=== PATIENT | female | born 1950 | race Hispanic/Latino ===

== ENCOUNTER 2017-11-08 14:09 | Emergency (ER) | payer MEDICARE ==
[~2017-11-08] VITALS: Ht 167.6 cm; Wt 72.6 kg
[~2017-11-08 14:09] MED LIST: CALCIUM PO; FOLIC ACID PO; HUMIRA IV; HUMIRA20 MG/0.4; METHOTREXATE2.5 MG PO; MULTIVITAMIN PO; VITAMIN D PO
[2017-11-08] MEDS ORDERED: HYDROCODONE/APAP 7.5MG-325MG 1 EA TAB PO ONE (15:00)
--- NOTE | 2017-11-08 15:55 | Diagnostic Imaging Report ---
SHOULDER RIGHT COMPLETE - 2 views HISTORY: Pain COMPARISON: None available. FINDINGS: See below. IMPRESSION: Intra-articular fracture of the inferior aspect of the right glenoid. No evidence of acute fracture or dislocation of the right humeral head. Signed by: Dr. Fredy Terrazas MD on 11/08/2017 3:52 PM
--- NOTE | 2017-11-08 15:57 | Diagnostic Imaging Report ---
Cervical Spine, 6 views HISTORY: Pain COMPARISON: None. FINDINGS: Limited sensitivity for detection of subtle fractures and ligamentous abnormalities. On the lateral view, the cervical spine is visualized from the skull base to C7. The alignment is normal. Vertebral body heights are maintained. No acute displaced fracture involving the visualized cervical spine. Mild degenerative changes, most prominent at C4-C6. IMPRESSION: No acute radiographic abnormality. Signed by: Dr. Fredy Terrazas MD on 11/08/2017 3:53 PM
== END 2017-11-08 17:09 | disposition home or self-care (01) ==
LOC: ER 14:09
DX: S42.141A Displaced fracture of glenoid cavity of scapula, right shoulder, initial encounter for closed fracture (principal); W01.198A Fall on same level from slipping, tripping and stumbling with subsequent striking against other object, initial encounter; Y92.019 Unspecified place in single-family (private) house as the place of occurrence of the external cause
CPT/HCPCS: 72050; 99284

== ENCOUNTER → 2017-11-19 | Outpatient (CLI) | payer MEDICARE ==
--- NOTE | 2017-11-19 14:42 | Diagnostic Imaging Report ---
Exam: Right shoulderCT without contrast. History: Shoulder pain. Fall. Decreased range of motion. Fracture. Comparison:Radiographs 11/08/2017 Technique: Utilizing a 64-slice multidetector CT, axial imaging was performed through the right shoulder without IV contrast. Multiplanar reformation was performed. Findings: There is a comminuted displaced intra-articular fracture involving the right mid/inferior glenoid. Several bone fragments are seen. The largest bone fragment is displaced centrally by approximately 3 mm and inferiorly by approximately 6 mm. The findings are best seen on coronal reformatted image 69 through 90. There is associated soft tissue swelling and a glenohumeral joint effusion. There are mild degenerative changes at the acromioclavicular joint. There is undersurface spurring and narrowing of the supraspinatus tendon outlet. Ill-defined calcification is seen along the anterior superior humeral head in the rotator cuff musculature which is likely due to partial tearing of the rotator cuff/capsule with soft tissue calcification. This is best seen on series 4 image 24 through 27. The visualized portion of the lung is unremarkable. No radiopaque foreign body is seen. Impression: Comminuted displaced intra-articular fracture involving the mid/inferior glenoid bone. There is associated soft tissue swelling and a glenohumeral joint effusion. Ill-defined calcification along the anterior superior humeral head and the rotator cuff musculature likely due to to a partial tear of the rotator cuff/capsule. Signed by: Dr. Jaciel Diaz M.D. on 11/19/2017 2:39 PM
== END ==
LOC: CT 13:32
PROVIDERS: ATTEND Specialist
DX: S42.141A Displaced fracture of glenoid cavity of scapula, right shoulder, initial encounter for closed fracture (principal)

== ENCOUNTER → 2018-06-10 | Day surgery (SDC) | payer MEDICARE ==
[2018-06-04 10:12] LABS: BASOPHILS % 0.6 % (0.0-1.0); EOSINOPHILS # (AUTO) 0.2 (0.0-0.4); EOSINOPHILS % 3.2 % (0.0-6.0); HEMATOCRIT 39.6 % (34.2-44.1); HEMOGLOBIN 13.6 g/dL (12.0-16.0); LYMPHOCYTES # (AUTO) 1.6 (1.0-3.2); LYMPHOCYTES % 31.3 % (18.0-39.1); MEAN CORPUSCULAR HEMOGLOBIN 31.1 pg (28-32); MEAN CORPUSCULAR HGB CONC 34.3 g/dL (31-35); MEAN CORPUSCULAR VOLUME 90.4 fL (81-99); MONOCYTES # (AUTO) 0.4 (0.2-0.8); MONOCYTES % 6.9 % (4.4-11.3); NEUTROPHILS % 57.4 % (38.7-80.0); PLATELET COUNT 186 x10e3/uL (140-360); RED BLOOD COUNT 4.38 x10e6/uL (3.6-5.1); RED CELL DISTRIBUTION WIDTH 12.4 % (11.7-14.4)
[2018-06-04 10:28] LABS: ANION GAP 10.8 mmol/L (8-16); BLOOD UREA NITROGEN 17 mg/dL (7-26); BUN/CREATININE RATIO 23 (6-25); CALCIUM 9.6 mg/dL (8.4-10.2); CARBON DIOXIDE 28 mmol/L (22-29); CHLORIDE 103 mmol/L (98-107); CREATININE, SERUM 0.73 mg/dL (0.57-1.11); EST GLOMERULAR FILTRATION RATE > 60 ML/MIN (60-); GLUCOSE 113 mg/dL (74-118); POTASSIUM 3.8 mmol/L (3.5-5.1); SODIUM 138 mmol/L (136-145)
--- NOTE | 2018-06-04 10:59 | Diagnostic Imaging Report ---
PROCEDURE: X-RAY CHEST, TWO VIEWS COMPARISON: None. INDICATIONS: PREOPERATIVE CHEST XRAY FOR LEFT PARTIAL MASTECTOMY FINDINGS: LUNGS: No consolidations or edema. PLEURA: No effusions or pneumothorax. HEART \T\ MEDIASTINUM: The heart is within normal size-limits. Calcification within the aorta. BONES \T\ SOFT TISSUES: No acute findings. Mild degenerative changes of the spine. CONCLUSION: No acute thoracic abnormality. Asa Montesinos D.O. Dictated by: Asa Montesinos D.O. on 06/04/2018 at 11:04 Electronically approved by: Asa Montesinos D.O. on 06/04/2018 at 11:04
[~2018-06-10] MED LIST changes: +FENTANYL CITRATE/PF 100MCG/2 ML INJ ONE; -HUMIRA20 MG/0.4; +HUMIRA20 MG/0.4 SC; +MIDAZOLAM HCL 2 MG/2 ML VIAL ONE
--- NOTE | 2018-06-10 12:29 | Operative Report ---
DATE OF PROCEDURE: June 10, 2018 PREOPERATIVE DIAGNOSIS: Left breast mass. POSTOPERATIVE DIAGNOSIS: Left breast mass. OPERATION PERFORMED: Left partial mastectomy with preoperative ultrasound-guided needle localization and intraoperative specimen mammography. ANESTHESIA: General. COMPLICATIONS: None. ESTIMATED BLOOD LOSS: Minimal. DESCRIPTION OF PROCEDURE: With the patient lying in bed in the supine position, under good general anesthesia, after having undergone a needle localization of the area in question in the left breast, the left breast was prepped with Betadine solution and draped in the usual manner. In the area overlying the wire in the 3 o'clock position of the left periareolar area of the left breast, an incision was then made and the wire was found in the area in question which was then slowly and carefully encircled and removed. Upon removing the area with the wire, we noticed that there was not any actual abnormal-feeling mass in the wire area. There was, however, away from where the wire was another area that was firm and felt abnormal. The specimen was then sent for specimen mammography, which confirmed that the wire was fully contained within the specimen. However, the clip was not contained within the specimen, which was consistent with the area that we had felt away from where the tip of the wire was. The wire probably had moved at some point away from where the lesion was because there was a very good localization of the wire initially. We went ahead then and removed the area that was clinically abnormal and sent that to be examined, and the area in question was indeed contained within that specimen. All the specimens were then sent for pathological examination. The whole area was then thoroughly irrigated. Perfect hemostasis was ascertained. The breast tissue was then reapproximated with interrupted sutures of 2-0 chromic, and the skin was closed with subcuticular 5-0 Vicryl. Benzoin and Steri-Strips were applied. The sponge, lap and needle count was correct. Patient tolerated the procedure well and returned to the recovery room in stable condition. Job#: [id number]
== END | disposition home or self-care (01) ==
LOC: OR 07:34
PROVIDERS: ATTEND Surgery
DX: N64.89 Other specified disorders of breast (principal); K21.9 Gastro-esophageal reflux disease without esophagitis; L40.9 Psoriasis, unspecified; R00.1 Bradycardia, unspecified; M19.90 Unspecified osteoarthritis, unspecified site; Z01.810 Encounter for preprocedural cardiovascular examination; Z01.812 Encounter for preprocedural laboratory examination; Z01.818 Encounter for other preprocedural examination
CPT/HCPCS: 19301; 36415; 71046; 80048; 85025; 88307; 93005; J2250

== ENCOUNTER → 2018-09-25 | Day surgery (SDC) | payer MEDICARE ==
[2018-09-21 10:54] LABS: BASOPHILS % 0.6 % (0.0-1.0); EOSINOPHILS # (AUTO) 0.1 (0.0-0.4); EOSINOPHILS % 2.6 % (0.0-6.0); HEMOGLOBIN 13.7 g/dL (12.0-16.0); LYMPHOCYTES # (AUTO) 1.6 (1.0-3.2); LYMPHOCYTES % 31.2 % (18.0-39.1); MEAN CORPUSCULAR HEMOGLOBIN 30.8 pg (28-32); MEAN CORPUSCULAR HGB CONC 34.3 g/dL (31-35); MEAN CORPUSCULAR VOLUME 89.9 fL (81-99); MONOCYTES # (AUTO) 0.4 (0.2-0.8); NEUTROPHILS # (AUTO) 2.9 (2.1-6.9); NEUTROPHILS % 57.2 % (38.7-80.0); PLATELET COUNT 185 x10e3/uL (140-360); RED BLOOD COUNT 4.45 x10e6/uL (3.6-5.1); RED CELL DISTRIBUTION WIDTH 12.7 % (11.7-14.4)
[~2018-09-25] MED LIST changes: +CALCIUM CARBON500 MG PO
[2018-09-25 16:01] VITALS: BP 132/79
--- NOTE | 2018-09-25 16:41 | Operative Report ---
DATE OF PROCEDURE: September 25, 2018 REFERRING PHYSICIAN: Dr. Charli Woodson. PROCEDURE PERFORMED: Colonoscopy and polypectomy. INDICATIONS FOR COLONOSCOPY: Surveillance colonoscopy, personal history of colon polyps. MEDICATION: Patient was done under MAC. Please see anesthesiologist's note. PROCEDURE: With patient in left lateral decubitus position, a flexible fiberoptic Olympus colonoscope was inserted into the rectum with ease and advanced all the way to the cecum. The scope was then withdrawn slowly and mucosa overlying the cecum, ascending colon, transverse colon, and descending colon grossly appeared to be within normal limits. Some diverticular disease was noted that was more prominent in the sigmoid colon. Four polyps were hot biopsied and one polyp was snared from the sigmoid colon. One polyp was snared and 3 polyps were hot biopsied from the rectum. The scope was then retroflexed into the distal rectum and small internal hemorrhoids were noted, none of which was actively bleeding. The scope was then straightened out and was subsequently withdrawn. Patient tolerated the procedure well. IMPRESSION 1. Sigmoid colon polyps x5, one snared and 4 hot biopsied. 2. Diverticulosis. 3. Rectal polyps x4, one snared and 3 hot biopsied. 4. Internal hemorrhoids, none actively bleeding. PLAN: Follow up histology. Initiate high-fiber low-fat diet. Initiate high-fiber supplement. A total of 9 polyps were removed. Patient might benefit from a followup colonoscopy in 3 years. Job#: [id number] [place] cc:DR. CHARLI WOODSON
--- OUTSIDE RECORDS SUMMARY | 2018-09-27 10:47 | XMS REPORT | Clinical Summary ---
Author Author [facility] Address Unknown Phone Unavailable Care Team Providers Care Seo Coordinator Name Role Phone PCP Unavailable Allergies No Known Allergies Medications Not on file Active Problems Not on file Encounters Care Team Description Date Type Specialty Saqib Ford MD 12/08/2017 Anesthesia Event after 09/26/2017 Social History Date Tobacco Use Types Packs/Day Years Used Never Smoker Alcohol Use Drinks/Week oz/Week Comments No Sex Assigned at Date Recorded Not on file Industry Job Start Date Occupation Not on file Not on file Not on file Travel End Travel History Travel Start No recent travel history available. Last Filed Vital Signs Not on file Plan of Treatment Not on file Results Not on fileafter 09/26/2017 Insurance Payer Benefit Subscriber ID Type Phone Address Plan / Group [employer] - MEDICARE [employer] x[employer] [phone] [address] [place] [address] HMO POS PPO
== END | disposition home or self-care (01) ==
LOC: OR 10:59
PROVIDERS: ATTEND Internal Medicine Gastroenterology
DX: Z09 Encounter for follow-up examination after completed treatment for conditions other than malignant neoplasm (principal); K63.5 Polyp of colon; K62.1 Rectal polyp; K57.30 Diverticulosis of large intestine without perforation or abscess without bleeding; K64.8 Other hemorrhoids; L40.9 Psoriasis, unspecified; F41.9 Anxiety disorder, unspecified; Z01.810 Encounter for preprocedural cardiovascular examination; Z01.812 Encounter for preprocedural laboratory examination
CPT/HCPCS: 36415; 45384; 45385; 85025; 88305; 93005; J2250

== ENCOUNTER 2019-02-22 13:29 | Emergency (ER) | payer MEDICARE ==
[~2019-02-22] VITALS: Ht 167.6 cm; Wt 72.6 kg
[~2019-02-22 13:29] MED LIST changes: -FENTANYL CITRATE/PF 100MCG/2 ML INJ ONE; -MIDAZOLAM HCL 2 MG/2 ML VIAL ONE
--- OUTSIDE RECORDS SUMMARY | 2019-02-22 13:32 | XMS REPORT | Clinical Summary ---
Author Author [facility] Address Unknown Phone Unavailable Care Team Providers Care Stenographer Secretary Name Role Phone PCP Unavailable Allergies No Known Allergies Medications Not on file Active Problems Not on file Social History Date Tobacco Use Types Packs/Day [...] Not on file Results Not on fileafter 02/21/2018 Insurance Payer Benefit Subscriber ID Type Phone Address Plan / Group [employer] - MEDICARE [employer] x[employer] [phone] [address] [place] [address] O POS PPO
[2019-02-22 15:39] LABS: CLARITY,URINE SL CLOUDY (CLEAR); COLOR,URINE YELLOW (YELLOW); LEUKOCYTE ESTERASE ,URINE TRACE (NEGATIVE)
[2019-02-22 15:40] LABS: BILIRUBIN,URINE NEGATIVE (NEGATIVE); KETONES,URINE NEGATIVE (NEGATIVE); NITRITE,URINE NEGATIVE (NEGATIVE); PROTEIN,URINE DIPSTICK 2+ (NEGATIVE); URINE UROBILINOGEN 0.2 mg/dL (0.2 - 1)
[2019-02-22 15:56] LABS: BACTERIA,URINE MODERATE /HPF
[2019-02-22] MEDS ORDERED: HYDROCODONE/APAP 7.5MG-325MG 1 EA TAB PO PRN (17:30)
[2019-02-22] MEDS ORDERED: CEFTRIAXONE SOD 1 GM VIAL IM ONE (17:30)
--- NOTE | 2019-02-22 18:56 | Diagnostic Imaging Report ---
EXAM: CT Abdomen and Pelvis WITHOUT contrast INDICATION: Pain. Concern for kidney stones. COMPARISON: None. TECHNIQUE: Abdomen and pelvis were scanned utilizing a multidetector helical scanner from the lung base to the pubic symphysis without administration of IV contrast. Absence of intravenous contrast decreases sensitivity for detection of focal lesions and vascular pathology. Coronal and sagittal reformations were obtained. Renal stone protocol was performed. IV CONTRAST: None. ORAL CONTRAST: Water RADIATION DOSE: Total DLP: 520.15 mGy*cm Estimated effective dose: (DLP x 0.015 x size factor) mSv COMPLICATIONS: None FINDINGS: LINES and TUBES: None. LOWER THORAX: Unremarkable HEPATOBILIARY: Hepatic steatosis. 2 low-attenuation lesions in segment 5 and 6, the largest measuring 2.8 cm consistent with cysts. No biliary ductal dilation. GALLBLADDER: There are stones in the gallbladder. No wall thickening. SPLEEN: No splenomegaly. PANCREAS: No focal masses or ductal dilatation. ADRENALS: No adrenal nodules KIDNEYS/URETERS: No hydronephrosis. 8.3 cm cyst exophytic of the lower pole of the left kidney. Small left parapelvic cysts. No stones. 2.2 cm cyst in the upper pole of the left kidney. 2.1 cm cyst in the posterior upper pole of the left kidney. GI TRACT: No abnormal distention, wall thickening, or evidence of bowel obstruction. Appendix is nonvisualized, however, no evidence of appendicitis. PELVIC ORGANS/BLADDER: The uterus is absent. Urinary bladder is decompressed, however, there appears to be mild asymmetric wall thickening, associated with perinephric stranding. LYMPH NODES: No lymphadenopathy. VESSELS: Unremarkable. PERITONEUM / RETROPERITONEUM: No free air or fluid. BONES: Mild loss of height of the superior endplate of L1. SOFT TISSUES: Unremarkable. IMPRESSION: 1. No obstructive uropathy. No urolithiasis. Findings may reflect cystitis in the proper clinical setting 2. Cholelithiasis. No biliary dilatation. 3. Hepatic steatosis. 4. Large, 8.3 cm cyst in the lower pole of the right kidney. Signed by: Dr. Hiro Villar M.D. on 02/22/2019 6:53 PM
[2019-02-22] MEDS ORDERED: CEFTRIAXONE SOD 1 GM VIAL IM NR (19:30)
--- NOTE | 2019-02-22 19:35 | NUR ---
PT CALLED BACK INTO TRIAGE FOR VITALS AND DISCHARGE.
--- NOTE | 2019-02-22 19:51 | NUR ---
PT DISCHARGED FROM ER IN NAD, VERBALIZED UNDERSTANDING OF TEACHINGS, AMBULATORY WITH STEADY GAIT OUT OF ER.
== END 2019-02-22 19:53 | disposition home or self-care (01) ==
LOC: ER 13:29
DX: M54.5 Low back pain (principal); S39.012A Strain of muscle, fascia and tendon of lower back, initial encounter; Y93.B9 Activity, other involving muscle strengthening exercises; Y92.39 Other specified sports and athletic area as the place of occurrence of the external cause; N30.90 Cystitis, unspecified without hematuria; L40.9 Psoriasis, unspecified
CPT/HCPCS: 74176; 81001; 87086; 99282; J0696

== ENCOUNTER → 2019-07-06 | Outpatient (CLI) | payer MEDICARE ==
--- NOTE | 2019-07-06 11:53 | Diagnostic Imaging Report ---
Exam: Bone mineral density study. History: Osteoporosis Comparison: 12/28/2012 Discussion: Evaluation of left hip and lumbar spine was performed utilizing DEXA Hologic bone densitometer. The study is technically adequate. The patient's fracture risk is compared to an age-matched control. Left femoral neck bone mineral density: 0.751 g/cm2, T-score is -1.6, Z-score is 0.0. Decreased 2.0% compared to prior exam. Lumbar spine total bone mineral density: 0.973 gm/cm2, T-score is -0.7, Z-score is 1.5. Increased 13.1% compared to prior exam. Impression: 1. Bone mineralization by WHO Classification using T score is osteopenia. 2. The 10 year probability for a major osteoporotic fracture is 8.4 and for hip fracture is 1.0. Signed by: Dr. Ousmane Lujan MD on 07/06/2019 11:49 AM
== END ==
LOC: DX 10:29
PROVIDERS: ATTEND Internal Medicine Rheumatology
DX: Z13.820 Encounter for screening for osteoporosis (principal)
CPT/HCPCS: 77080

== ENCOUNTER → 2024-06-10 | Day surgery (SDC) | payer MEDICARE ==
[2024-06-08 10:43] LABS: BASOPHILS % 0.6 % (0.0-1.0); EOSINOPHILS # (AUTO) 0.2 (0.0-0.4); EOSINOPHILS % 4.1 % (0.0-6.0); HEMOGLOBIN 11.7 g/dL (12.0-16.0); LYMPHOCYTES # (AUTO) 1.4 (1.0-3.2); LYMPHOCYTES % 25.5 % (18.0-39.1); MEAN CORPUSCULAR HEMOGLOBIN 31.7 pg (28-32); MEAN CORPUSCULAR HGB CONC 32.5 g/dL (31-35); MEAN CORPUSCULAR VOLUME 97.6 fL (81-99); MONOCYTES # (AUTO) 0.4 (0.2-0.8); MONOCYTES % 7.5 % (4.4-11.3); NEUTROPHILS # (AUTO) 3.3 (2.1-6.9); NEUTROPHILS % 62.1 % (38.7-80.0); PLATELET COUNT 174 x10e3/uL (140-360); RED BLOOD COUNT 3.69 x10e6/uL (3.6-5.1); RED CELL DISTRIBUTION WIDTH 12.7 % (11.7-14.4); WHITE BLOOD COUNT 5.33 x10e3/uL (4.8-10.8)
[~2024-06-10] MED LIST changes: +ASPIRIN81 MG PO; +HYOSCYAMINE SULFATE 0.5 MG/ML INJ ONE; +KRILL OIL 5001 EACH PO; +LOSARTAN POTASS25 MG PO; +PROPOFOL IV EMULSION 50 ML IV ONE; +SIMVASTATIN20 MG PO; +VIT D3 PO
[2024-06-10] MEDS: LACTATED RINGER'S 1,000 ML ONE (09:13)
[2024-06-10 12:25] VITALS: TEMP 97.1
[2024-06-10 12:45] VITALS: BP 120/65; PULSE 73; RESP 18; O2SAT 99
== END | disposition home or self-care (01) ==
LOC: OR 09:08
PROVIDERS: ATTEND Internal Medicine Gastroenterology
DX: Z09 Encounter for follow-up examination after completed treatment for conditions other than malignant neoplasm (principal); K63.5 Polyp of colon; K57.30 Diverticulosis of large intestine without perforation or abscess without bleeding; K64.8 Other hemorrhoids; R94.31 Abnormal electrocardiogram [ECG] [EKG]; Z01.810 Encounter for preprocedural cardiovascular examination; Z01.812 Encounter for preprocedural laboratory examination; I10 Essential (primary) hypertension; E78.5 Hyperlipidemia, unspecified; M19.91 Primary osteoarthritis, unspecified site; M06.9 Rheumatoid arthritis, unspecified; Z79.899 Other long term (current) drug therapy; Z79.82 Long term (current) use of aspirin
CPT/HCPCS: 36415; 45385; 85025; 93005; J1980; J2704; J7121

== ENCOUNTER 2024-10-20 10:42 | Emergency (ER) | payer MEDICARE ==
[~2024-10-20] VITALS: Ht 160 cm; Wt 72.3 kg
[~2024-10-20 10:42] MED LIST changes: -HYOSCYAMINE SULFATE 0.5 MG/ML INJ ONE; -PROPOFOL IV EMULSION 50 ML IV ONE
[2024-10-20 11:45] VITALS: PULSE 83; RESP 16; TEMP 99.3; O2SAT 98
== END 2024-10-20 11:47 | disposition home or self-care (01) ==
LOC: FSED 11:04
DX: R50.9 Fever, unspecified (principal); B34.9 Viral infection, unspecified; L40.9 Psoriasis, unspecified
CPT/HCPCS: 87400; 99283

== ENCOUNTER 2024-11-21 14:05 | Emergency (ER) | payer MEDICARE ==
[~2024-11-21] VITALS: Ht 160 cm; Wt 71.8 kg
[2024-11-21] MEDS ORDERED: CYCLOBENZAPRINE5 MG PO (14:36)
[2024-11-21 14:49] VITALS: PULSE 68; RESP 16; TEMP 97.4; O2SAT 100
== END 2024-11-21 14:49 | disposition home or self-care (01) ==
LOC: FSED 14:13
DX: M54.2 Cervicalgia (principal); M43.6 Torticollis; I10 Essential (primary) hypertension; E78.5 Hyperlipidemia, unspecified; M06.9 Rheumatoid arthritis, unspecified; L40.9 Psoriasis, unspecified
CPT/HCPCS: 99283